=== PATIENT | female | born 1980 | race Caucasian/White ===

== ENCOUNTER 2016-12-24 08:56 | Emergency (ER) | payer OTHER ==
[~2016-12-24] VITALS: Ht 165.1 cm; Wt 113.4 kg
--- NOTE | 2016-12-24 09:25 | Urgent Treatment Center Report ---
History of Present Issue Date/Time Seen by Provider 12/24/16 0922 Visit Reason Pt arrived:Walked Presenting Problem:PT INJURED HER RIGHT HAND LAST NIGHT Location if Accident: Onset of symptoms date/time:/ or onset unknown for:MEDICAL HX UNKNOWN Have you (or family members/close friends) recently traveled outside the [place]? N If Yes, where/when: Have you had exposure to infectious disease within the past month? TB? Other? Specify: Source patient Exam Limitations no limitations Comment Patient was doing remodeling and knocking out cabinets. Struck the palm of her right hand against the cabinets last night. Instantly starting swelling with pain and bruising. Somewhat better today but still painful and swollen. No loss of sensation. ALLERGIES Coded Allergies: clindamycin (Mild, 12/24/16) History Medical History General CAD? No Angina: No [place]: No Hypertension? No Hyperlipidemia? No CHF? No DVT? No PE? No COPD? No Asthma? No Anemia? No GERD? No Gastric ulcers? No GI Bleed? No Hernia? No Thyroid Problems? No Hypothyroidism? No CVA? No Seizures? No Diabetes? No Renal Insuffiency? No UTI? No Stones? No BPH? No GB Disease: No Nephritic Syndrome? No Asplenia? No Hepatitis? No Sickle Cell Disease? No Arthritis? No Migraines? No Cataracts? No Glaucoma? No MRSA? No HIV? No TB? No Anxiety? No Depression? No Cancer? No More? No Immunization HX DT/Tetanus 1-4 Years Ago Surgical Hx Previous Surgery?Y Oral Surgery Family History Family HX Family Hx Insignificant Yes Social History Smoking Hx Smoker: Never Smoker Tobacco: No Alcohol Alcohol: No Review of Systems All Other Systems Reviewed and Negative Musculoskeletal see HPI Physical Exam Vital Signs Vital Signs Date Time Temp Pulse Resp B/P Pulse O2 O2 Flow FiO2 Ox Delivery Rate 12/24 0908 97.1 83 16 146/90 98 General Appearance normal appearance, no apparent distress Respiratory Status No: respiratory distress, chest symmetrical. Cardiovascular normal exam, regular rate/rhythm, no peripheral edema Peripheral Pulses Pulses normal Yes Extremities normal range of motion, normal capillary refill, swelling, bruising of thenar eminence right palm Strength 5 Upper Ext (R) Neurologic alert, normal exam, oriented x 3 Mental status normal mood/affect Medical Decision Making LABS/Meds/Orders Pt receiving controlled substance in ED? No Results/Orders Orders Procedure Date/time Status HAND-RT 3 VIEWS 12/24 913 Active XRAY/CT/US XRAY/CT/US XRAY hand XR interpretation by reviewed by me (Reviewed by Dr Norton as well) Xray Results no fracture seen Comment Discussed results with patient and mother. Xray will also be read by radiologist and we will call if there are discrepancies. Departure Departure Time of Disposition 0933 Disposition DC Home or Self Care(routine) Clinical Impression Primary Impression: Hand pain, right Condition STABLE Referrals Kathleen Canas MD (Family) Patient Instructions DI for Hand Injury Discharge Counseling Counseled pt/family regarding diagnosis, test results at 0940
[2016-12-24 09:41] VITALS: BP 146/90
--- NOTE | 2016-12-24 10:23 | RADIOLOGY REPORT PS360 ---
HAND-RT 3 VIEWS COMPARISON: None HISTORY: Right hand pain after injury TECHNIQUE: AP lateral and oblique views FINDINGS: The carpal bones metacarpals and phalanges all appear intact with no evidence of recent or old fracture. The soft tissues are normal. IMPRESSION: Negative right hand
== END 2016-12-24 09:41 | disposition home or self-care (01) ==
LOC: UTC 08:56
DX: G89.11 Acute pain due to trauma (principal); M79.641 Pain in right hand